=== PATIENT | male | born 1940 | race Two or more races ===

== ENCOUNTER 2025-03-06 12:16 | Emergency (ER) | payer MEDICARE, MEDICAID, SELFPAY ==
--- NOTE | 2025-03-06 12:18 | EDNOTE_ITS ---
<Statement entered by Marline Mccray MD - 03/08/25 17:41> As co-signing physician, I was present and available for consult prn. I concur with the plan and care as documented by the midlevel provider. ED General RME/HPI General Chief complaint: Cardiac Arrest/CPR Stated complaint: CARDIAC ARREST Time Seen by Provider: 03/06/25 12:17 Related Data Home Medications ?Medication ?Instructions ?Recorded ?Confirmed amlodipine 5 mg tablet 5 mg PO HS 04/20/19 10/14/23 finasteride 5 mg tablet 5 mg PO DAILY 06/06/2010/13 isosorbide dinitrate 30 mg tablet 30 mg PO DAILY 06/0610/14/23 potassium chloride 10 mEq 10 meq PO QDAY 08/06/2009/22 tablet,extended release apixaban 5 mg tablet (Eliquis) 5 mg PO BID 08/07/20 acetaminophen 325 mg tablet 650 mg PO [id number] PRN Pain , Mild 10/14/23 10/14/23 albuterol sulfate 2.5 mg/3 mL 2.5 mg inhalation Q6H IN N 10/14/23 10/14/23 (0.083 %) solution for nebulization Shortness Of Breat h amiodarone 100 mg tablet 100 mg PO QDAY 10/14/2309/22 bisacodyl 10 mg rectal suppository 10 mg IN QDAY PRN C onstipation 10/14/23 10/14/23 (Dulcolax (bisacodyl)) clonidine HCl 0.1 mg tablet 0.1 mg PO [id number] PRN Hype rtension 10/14/23 10/14/23 docusate sodium 250 mg capsule 250 mg PO BID 10/14/23 10/14/23 lisinopril 10 mg tablet 10 mg PO QDAY 10/14/2310/13 magnesium hydroxide 400 mg/5 mL 30 ml PO Q72H PRN Cons tipation 10/14/23 10/14/23 oral suspension (Milk of Magnesia) multivitamin with minerals 1 cap PO QDAY 10/14/2309/22 tamsulosin 0.4 mg capsule (Flomax) 0.4 mg PO QDAY 09/2210/14/23 Allergies Allergy/AdvReac Type Severity Reaction Status Date / Time No Known Allergies Allergy Verified 02/18/23 10:16 Past Medical History Past Medical History NEUROLOGIC: Positive Dementia; Negative Neurological Disorders or Seizures CARDIAC: Positive Cardiac Disorders, Atrial Fibrillation, Peripheral Vascular Disease, Hypercholesterolemia, Congestive Heart Failure, Deep Vein Thrombosis and Hypertension RESPIRATORY: Positive Asthma; Negative Chronic Obstructive Pulmonary Disease (COPD) GASTROINTESTINAL: Positive Gastrointestinal Disorders and Obesity GENITOURINARY: Positive Genitourinary Disorders, Prostate Cancer and Benign Prostatic Hyperplasia; Negative Renal Disease MUSCULOSKELETAL: Positive Musculoskeletal Disorders, Arthritis, Gout and Fractures ENT: Positive Cataracts ENDOCRINE: Positive Diabetes Mellitus Type 2; Negative Endocrine Disorders or Diabetes Mellitus Type 1 HEMATOLOGIC: Negative Blood Disorders or Sickle Cell Disease OTHER HISTORY: Positive Falls, Measles and Prostate Cancer; Negative Autoimmune Disease, Down Syndrome, Developmental Delay, Blood Transfusions, Blood Transfusion Reaction, Anesthesia Reactions, Organ Transplant or MRSA Family History FAMILY HISTORY: Negative Family Psychiatric Problems, Family Respiratory Disorders, Family Cardiac Disorders, Family Gastrointestinal Problems, Family Cancer, Family Surgery or Family Anesthesia Reaction Surgical History SURGICAL: Negative Cardiac Surgery, Endocrine Surgery, Ear Surgery, Abdominal Surgery, Neurologic Surgery, Vasectomy or Organ Transplant Social History SMOKING STATUS: Unknown if ever smoked SUBSTANCE USE: does not use Course Quality Measures none Orders Category Date Time Status Intubation NOW Care 03/06/25 12:51 Completed Saline [Insert IV] NOW Care 03/06/25 12:18 Completed EKG (ED Only) Stat Exams 03/06/25 12:18 Stop Req Sodium Chloride 0.9% 1000 ml [Ns] 1,000 ml Med 03/06/25 12:18 Discontinued IV 999 mls/hr Discharge Plan Plan Patient Disposition: Problem List Clinical Impression: Cardiac arrest Patient/Caregiver Discharge Instructions Print Language: Norwegian [facility] Clinical Information Provided by: patient and EMS Medical [facility] Meds/Rx considered, not ordered None Labs/Rad/Tests considered, not ordered None Medication Administration(s) Medication Administration History Discontinued Medications Sodium Chloride (Ns) 1,000 mls @ 999 mls/hr IV .Q1H1M ONE Stop: 03/06/25 13:18 Last Admin: 03/06/25 13:52 Dose: Not Given Documented By: VL Non-Admin Reason: Cancelled by Provider
--- NOTE | 2025-03-06 12:33 | PD.EDCPR ---
ED CPR RME/HPI General Chief Complaint: Cardiac Arrest/CPR Stated Complaint: CARDIAC ARREST Time Seen by Provider: 03/06/25 12:17 Arrival date/time: 03/06/25 12:16 RME / HPI RME / HPI narrative: DR. WOODY MAIN ED EVALUATION: 84 y/o male with Hx of Atrial Fibrillation, PVD, Hypercholesterolemia, CHF, DVT, and HTN BIBA from [facility] presents with active CPR in progress by EMS. According to the paramedics, a 911 call was received after nursing staff performed their rounds and found patient apneic and pulseless. LKWT was at approximately 10:40 AM after breakfast. Blood sugar on scene was 249 mg/dL. EMS states the initial reading on their monitor on arrival was asystole then went into atrial fibrillation following 3 doses of Epi. EMS states they performed CPR, delivered 5 shocks in total, and Amiodarone 300 mg on scene. I/O in place to the right hall. Patient is full code. Related Data Home Medications ?Medication ?Instructions ?Recorded ?Confirmed amlodipine 5 mg tablet 5 mg PO HS 04/20/19 10/14/23 finasteride 5 mg tablet 5 mg PO DAILY 06/06/20 10/14/23 isosorbide dinitrate 30 mg tablet 30 mg PO DAILY 06/06/20 10/14/23 potassium chloride 10 mEq 10 meq PO QDAY 08/06/20 10/14/23 tablet,extended release apixaban 5 mg tablet (Eliquis) 5 mg PO BID 08/07/20 10/14/23 acetaminophen 325 mg tablet 650 mg PO [id number] PRN Pain, Mild 10/14/23 10/14/23 albuterol sulfate 2.5 mg/3 mL 2.5 mg inhalation Q6H PRN 10/14/23 10/14/23 (0.083 %) solution for nebulization Shortness Of Breath amiodarone 100 mg tablet 100 mg PO QDAY 10/14/23 10/14/23 bisacodyl 10 mg rectal suppository 10 mg MN QDAY PRN Constipation 10/14/23 10/14/23 (Dulcolax (bisacodyl)) clonidine HCl 0.1 mg tablet 0.1 mg PO [id number] PRN Hypertension 10/14/23 10/14/23 docusate sodium 250 mg capsule 250 mg PO BID 10/14/23 10/14/23 lisinopril 10 mg tablet 10 mg PO QDAY 10/14/23 10/14/23 magnesium hydroxide 400 mg/5 mL 30 ml PO Q72H PRN Constipation 10/14/23 10/14/23 oral suspension (Milk of Magnesia) multivitamin with minerals 1 cap PO QDAY 10/14/23 10/14/23 tamsulosin 0.4 mg capsule (Flomax) 0.4 mg PO QDAY 10/14/23 10/14/23 Allergies Allergy/AdvReac Type Severity Reaction Status Date / Time No Known Allergies Allergy Verified 02/18/23 10:16 Review of Systems Review of Systems ROS Unobtainable: unobtainable due to mental status Past Medical History Past Medical History NEUROLOGIC: Positive Dementia CARDIAC: Positive Cardiac Disorders, Atrial Fibrillation, Peripheral Vascular Disease, Hypercholesterolemia, Congestive Heart Failure, Deep Vein Thrombosis and Hypertension RESPIRATORY: Positive Asthma GASTROINTESTINAL: Positive Gastrointestinal Disorders and Obesity GENITOURINARY: Positive Genitourinary Disorders, Prostate Cancer and Benign Prostatic Hyperplasia MUSCULOSKELETAL: Positive Musculoskeletal Disorders, Arthritis, Gout and Fractures ENT: Positive Cataracts ENDOCRINE: Positive Diabetes Mellitus Type 2 OTHER HISTORY: Positive Falls, Measles and Prostate Cancer ED Exam Narrative Physical exam: GENERAL APPEARANCE: Unresponsive, CPR in progress HEENT: Normocephalic, atraumatic; pupils 9 mm fixed, absent corneal reflex, lips cyanotic NECK: Supple LUNGS: No spontaneous respirations, ventilated via BVM, breath sounds clear bilaterally with ventilation HEART: No pulse, no cardiac sounds, good pulse with CPR ABDOMEN: Mildly distended; soft EXTREMITIES: atraumatic; cyanotic NEUROLOGIC: Obtunded, unresponsive, no response to painful stimuli SKIN: Cool, mottled, cyanotic Course Course Course Narrative: At 1217, ED staff took over CPR from EMS. Patient was intubated at 1220. Despite the ED staff's best efforts, the patient . Time of was called at 1231. Quality Measures none Orders Category Date Time Status EKG (ED ONLY) *Do not use* NOW Care 03/06/25 12:18 Active Intubation NOW Care 03/06/25 12:51 Completed Saline [Insert IV] NOW Care 03/06/25 12:18 Active EKG (ED Only) Stat Exams 03/06/25 12:18 Ordered XR chest 1V Stat Exams 03/06/25 12:18 Ordered B-Type Natriuretic Peptide Stat Lab 03/06/25 12:18 Ordered CBC Stat Lab 03/06/25 12:18 Ordered Comprehensive Metabolic Panel Stat Lab 03/06/25 12:18 Ordered Drug Screen,Urine Stat Lab 03/06/25 12:18 Ordered LDH (Lactate Dehydrogenase) Stat Lab 03/06/25 12:18 Ordered Magnesium Stat Lab 03/06/25 12:18 Ordered Partial Thromboplastin Time Stat Lab 03/06/25 12:18 Ordered Prothrombin Time with INR Stat Lab 03/06/25 12:18 Ordered Troponin I Stat Lab 03/06/25 12:18 Ordered Urinalysis, C/S if Indicated Stat Lab 03/06/25 12:18 Ordered Sodium Chloride 0.9% 1000 ml [Ns] 1,000 ml Med 03/06/25 12:18 Discontinued IV 999 mls/hr PROCEDURES: Intubation Time out performed: Yes sedative: none Laryngoscope: Tami Assist Device Used: LMA ET Tube Size: 8 ET Tube Uncuffed: Yes Tube Secured Depth (cm): 25 Tube Secured Location: teeth Tube Placement Confirmation: visualized tube passing through cords Patient Tolerated Procedure: no complications Intubation Complications: none Cardiac Arrest / CPR MDM Narrative MDM Narrative:: Scribe Attestation: Lorelei Vides am scribing for and in the presence of Dr. Woody. Provider Notation: Although this document has been carefully reviewed, there may still be some phonetic and other typographical errors. These errors are purely grammatical due to imperfections in the software program and should not be construed in any way to compromise the substance of the patient's medical care during this visit. Patient data External records reviewed:: [facility] previous records (Reviewed prior ED records from 10/13/23. Patient was seen for Acetabulum fracture, right.), EMS form and Long Term records Clinical information provided by:: EMS Social determinants that could affect healthcare access:: housing (SNF) Patient has the following chronic illnesses:: Dementia, Atrial Fibrillation, Peripheral Vascular Disease, Hypercholesterolemia, Congestive Heart Failure, Deep Vein Thrombosis, Hypertension, Asthma, Obesity, Prostate Cancer, Benign Prostatic Hyperplasia, Arthritis, Gout, Cataracts, Diabetes Mellitus Type 2, Prostate Cancer How is presenting disease/condition affected by chronic disease/condition?: exacerbated by Evaluation data The following diagnostics were reviewed and interpreted by me:: other (specify) (N/A) Lab and/or radiology exams considered but not ordered:: None Interpretation Summary: N/A Medications / Prescriptions Medications or Prescriptions considered but not ordered:: None Medication administrations:: Medication Administration History Discontinued Medications Sodium Chloride (Ns) 1,000 mls @ 999 mls/hr IV .Q1H1M ONE Stop: 03/06/25 13:18 See above if any Consultations Consultation(s) initiated? (list below): No Diagnosis Cardiac arrest differential diagnosis: acute massive pulmonary embolism, acute respiratory failure, acute myocardial infarction, cardiac arrest and sudden cardiac Most likely diagnosis given after review of the tests above:: Cardiac Arrest Admission Indicated Admission indicated?: not indicated Explain why admission is indicated or not indicated:: Patient . Admission Request Was there a request for admission?: No Disposition Plan Disposition Plan: other (specify) (Patient .) Discharge Plan Plan Patient Disposition: Problem List Clinical Impression: Cardiac arrest Patient/Caregiver Discharge Instructions Print Language: Turkmen
--- NOTE | 2025-03-06 12:38 | PC.NURSE ---
PATIENT WAS BROUGHT IN BY EMS CODE BLUE CARDIAC ARREST. PATIENT COMING FROM [facility]. PATIENT WAS LAST SEEN NORMAL AROUND 1040 PER FACILITY STAFF. PATIENT WAS INITIALLY ASYSTOLE ON MONITOR PER EMS. PATIENT WAS GIVEN EPINEPHRINE AND CONVERTED TO V-FIB, PATIENT WAS SHOCKED A TOTAL OF 2 TIM[address] IN ROUTE, PATIENT WAS GIVEN EPINEPHRINE A TOTAL OF 5 TIMES AND AMIODARONE 300 MG. PATIENT HAS IO ACCESS ON ARRIVAL. ARRIVED TO ED CODE BLUE. SEE CODE SHEET FOR ALL INFORMATION. PATIENT SON NOTIFIED.
--- NOTE | 2025-03-06 13:52 | PC.NURSE ---
PATIENT AT 1231. NOTIFIED [employer] AT 1325, AND MELL HUA AT 1352. SON SOFIA AND PATIENT'S AT BEDSIDE.
== END 2025-03-06 16:05 | disposition expired ==
LOC: SERX 14:39
PROVIDERS: Emergency Provider Emergency Medicine
DX: I46.9 Cardiac arrest, cause unspecified (principal); I48.91 Unspecified atrial fibrillation; Z79.01 Long term (current) use of anticoagulants
CPT/HCPCS: 31500; 80053; 80307; 81001; 83615; 83735; 83880; 84484; 85025; 85610; 85730; 92950; 99291; J0168